=== PATIENT | female | born 2000 | race African-American/Black ===

== ENCOUNTER → 2022-06-03 | Day surgery (SDC) | payer BC, OTHER | LOC: CSHSDC/OP 09:17 | PROVIDERS: ATTEND Obstetrics & Gynecology | DX: O36.0190 Maternal care for anti-D [Rh] antibodies, unspecified trimester, not applicable or unspecified (principal); Z67.21 Type B blood, Rh negative | CPT/HCPCS: 86900; 86901; 90384; 96372 ==

== ENCOUNTER 2022-08-01 13:24 | Day surgery (SDC) | payer BC, OTHER ==
[2022-08-01] MEDS ORDERED: hydrALAZINE 20 MG/ML VIAL SLOW IVP PRN (13:44)
[2022-08-01 13:53] VITALS: BMI 33.3
[2022-08-01 14:34] LABS: Bilirubin Neg (Negative); Blood, Urine Negative (Negative); CAUTI Indications for Culture Pregnancy; Clarity Clear (Clear); Glucose, Urine (Dipstick) Normal (Negative); Ketone, Urine Negative (Negative); Leukocyte 100 (Negative); Nitrite Negative (Negative); Protein, Urine (Dipstick) 15 mg/dl (Neg-Trace); Urobilinogen Normal mg/dL (Less than 2)
[2022-08-01 14:51] LABS: Urine Culture Reflex Yes Yes
[2022-08-01 14:52] LABS: RBC/HPF 0-3 HPF (0-3)
[2022-08-01 14:53] LABS: Bacteria/HPF 1+ HPF (None Seen)
[2022-08-01 15:08] LABS: Fetal Membranes Rupture No Membranes Rupture (No Rupture)
[2022-08-02 22:13] LABS: Chlamydia by PCR *Indeterminate (NotDetected); GC by PCR *Indeterminate (NotDetected)
== END 2022-08-01 17:38 | disposition home or self-care (01) ==
LOC: CSHLD/OP 13:24
PROVIDERS: ATTEND Obstetrics & Gynecology
DX: O23.43 Unspecified infection of urinary tract in pregnancy, third trimester (principal); N39.0 Urinary tract infection, site not specified; O98.813 Other maternal infectious and parasitic diseases complicating pregnancy, third trimester; Z3A.36 36 weeks gestation of pregnancy; Z88.6 Allergy status to analgesic agent; Z91.041 Radiographic dye allergy status
CPT/HCPCS: 76819; 81001; 84112; 87086; 87480; 87491; 87510; 87591; 87660; 99285

== ENCOUNTER 2022-08-04 09:45 | Inpatient (IN) | payer BC, OTHER ==
[2022-08-04] MEDS ORDERED: HYDROcodone/Acetaminophen 5/325 mg Tablet PO PRN ×2 (10:06→21:52)
[2022-08-04] MEDS ORDERED: hydrALAZINE 20 MG/ML VIAL SLOW IVP PRN ×2 (10:06→21:52)
[2022-08-04] MEDS ORDERED: Butorphanol Tartrate 1 MG/ML VIAL SLOW IVP PRN (10:06)
[2022-08-04] MEDS ORDERED: Carboprost 250 MCG/ML AMP IM PRN (10:06)
[2022-08-04] MEDS ORDERED: Lidocaine 1% (PF) 30 ML VIAL SC PRN (10:06)
[2022-08-04] MEDS ORDERED: Acetaminophen 500 MG TAB PO PRN (10:06)
[2022-08-04] MEDS ORDERED: Diphenoxylate HCl/Atropine Tablet PO PRN ×2 (10:06)
[2022-08-04] MEDS ORDERED: Ondansetron PF 4 MG/2 ML Vial IVP PRN ×2 (10:06→21:52)
[2022-08-04] MEDS ORDERED: Misoprostol 200 MCG TAB PR PRN (10:06)
[2022-08-04] MEDS ORDERED: Promethazine HCl 25 MG/ML VIAL IM PRN ×2 (10:06→21:52)
[2022-08-04] MEDS ORDERED: Methylergonovine 0.2 MG/ML VIAL IM PRN ×2 (10:06→21:52)
[2022-08-04] MEDS ORDERED: NS w/ Oxytocin 30 units 500 ML IV SCH ×2 (10:15→21:52)
[2022-08-04] MEDS ORDERED: Penicillin G Potassium 5 MILL.UNITS in Sodium Chloride 0.9% 100 ML IVPB SCH (10:15)
[2022-08-04] MEDS ORDERED: Lactated Ringer's 1,000 ML IV SCH (10:15)
[2022-08-04 11:03] LABS: Hemoglobin 10.7 g/dL (12.0-15.5); Mean Corpuscular HGB CONC 33.1 g/dL (32.0-36.0); Mean Corpuscular Hemoglobin 28.4 pg (27.0-33.0); Mean Corpuscular Volume 85.7 fl (81.6-98.3); Mean Platelet Volume 11.3 fl (7.4-10.4); Platelet Count 246 10x3/uL (150-450); RBC Distribution Width 12.3 % (11.5-14.5); Red Blood Cell (RBC) Count 3.77 10x6/uL (3.90-5.03); White Blood Cell (WBC) Count 5.7 10x3/uL (3.5-10.5)
[2022-08-04 11:28] LABS: HBSAg Index 0.15 S/CO (0-0.99); Hep B Surf Ag Non-Reactive S/CO (NonReactive)
[2022-08-04 11:30] LABS: Syphilis Antibody Nonreactive (Nonreactive); Syphilis Antibody Index 0.04 S/CO (<1.00 Non-Reactive)
[2022-08-04 11:48] VITALS: BMI 32.3
[2022-08-04 12:33] LABS: SARS-CoV-2 NAA Rapid Test Not Detected (NotDetected)
[2022-08-04] MEDS: NS w/ Oxytocin 30 units 500 ML IV SCH ×2 (14:04→18:08)
[2022-08-04] MEDS: Penicillin G 2.5 MILL.units 2.5 MILL.UNITS in Premix Bag 1 BAG IVPB SCH ×2 (15:03→22:11)
[2022-08-04] MEDS ORDERED: Zolpidem Tartrate 5 MG TAB PO PRN (21:52)
[2022-08-04] MEDS ORDERED: Varicella virus, LIVE 0.5 ML VIAL SC ONE (21:52)
[2022-08-04] MEDS ORDERED: Benzocaine-Menthol 82.5 ML CAN TOP PRN (21:52)
[2022-08-04] MEDS ORDERED: Misoprostol 200 MCG TAB VAG PRN (21:52)
[2022-08-04] MEDS ORDERED: Boostrix 0.5 ML (Tdap) VIAL (>/=7 yrs of age) IM ONE (21:52)
[2022-08-04] MEDS ORDERED: Milk Of Magnesia 30 ML UDCUP PO PRN (21:52)
[2022-08-04] MEDS ORDERED: Preparation H Ointment 28 GM TUBE PR PRN (21:52)
[2022-08-04] MEDS ORDERED: diphenhydrAMINE 25 MG CAP PO PRN (21:52)
[2022-08-04] MEDS ORDERED: Measles/Mumps/Rubella 10 MCG/0.5 ML VIAL SC ONE (21:52)
[2022-08-04] MEDS ORDERED: Bisacodyl 10 MG SUPP PR PRN (21:52)
[2022-08-04] MEDS ORDERED: Lanolin Ointment 7 GM TUBE TOP PRN (21:52)
[2022-08-04] MEDS ORDERED: Docusate 100 MG CAP PO SCH (22:15)
[2022-08-05 04:28] LABS: Hemoglobin 10.8 g/dL (12.0-15.5); Mean Corpuscular HGB CONC 33.5 g/dL (32.0-36.0); Mean Corpuscular Hemoglobin 28.8 pg (27.0-33.0); Mean Corpuscular Volume 85.9 fl (81.6-98.3); Mean Platelet Volume 11.1 fl (7.4-10.4); Platelet Count 255 10x3/uL (150-450); RBC Distribution Width 12.1 % (11.5-14.5); Red Blood Cell (RBC) Count 3.75 10x6/uL (3.90-5.03); White Blood Cell (WBC) Count 10.5 10x3/uL (3.5-10.5)
[2022-08-05] MEDS: Ferrous Sulfate 325 MG TAB PO SCH ×2 (08:41→16:39)
[2022-08-05] MEDS: Prenatal Vitamin 1 TAB PO SCH (08:41)
[2022-08-05] MEDS: Docusate 100 MG CAP PO SCH ×2 (08:41→21:34)
[2022-08-06] MEDS: Ferrous Sulfate 325 MG TAB PO SCH (07:37)
[2022-08-06 07:58] VITALS: BP 94/50; TEMP 98.5
[2022-08-06] MEDS: Prenatal Vitamin 1 TAB PO SCH (08:17)
[2022-08-06] MEDS: Docusate 100 MG CAP PO SCH (08:17)
== END 2022-08-06 12:53 | disposition home or self-care (01) | DRG 807 ==
LOC: CSHLD 09:45 → CSHPP 21:37
PROVIDERS: ADMIT Obstetrics & Gynecology; ATTEND Obstetrics & Gynecology
PROC: 10E0XZZ Delivery of Products of Conception, External Approach (ICD-10-PCS; principal; 2022-08-04)
PROC: 3E0334Z Introduction of Serum, Toxoid and Vaccine into Peripheral Vein, Percutaneous Approach (ICD-10-PCS; 2022-08-04)
DX: O60.14X0 Preterm labor third trimester with preterm delivery third trimester, not applicable or unspecified (principal); Z37.0 Single live birth; Z3A.36 36 weeks gestation of pregnancy; Z20.822 Contact with and (suspected) exposure to COVID-19; Z91.041 Radiographic dye allergy status; Z88.6 Allergy status to analgesic agent; O99.824 Streptococcus B carrier state complicating childbirth; O26.893 Other specified pregnancy related conditions, third trimester; Z67.21 Type B blood, Rh negative
CPT/HCPCS: 36415; 76819; 81001; 84112; 85027; 85461; 86780; 86850; 86900; 86901; 87086; 87340; 87480; 87491; 87510; 87591; 87660; 90384; 96372; 99285; J2540; J2590; J3490; U0002